=== PATIENT | female | born 1985 | race Caucasian/White ===

== ENCOUNTER 2016-12-13 16:23 | Emergency (ER) | payer BC, OTHER ==
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
== END 2016-12-13 17:27 | disposition home or self-care (01) ==
LOC: BURERS 16:23
DX: R07.89 Other chest pain (principal); M06.9 Rheumatoid arthritis, unspecified; J45.909 Unspecified asthma, uncomplicated; F41.9 Anxiety disorder, unspecified; F32.9 Major depressive disorder, single episode, unspecified; F17.210 Nicotine dependence, cigarettes, uncomplicated
CPT/HCPCS: 71020

== ENCOUNTER 2018-01-03 14:33 | Emergency (ER) | payer OTHER ==
[2018-01-03 14:58] LABS: Pregnancy Test - Urine (BHCG) Negative (Negative); Pregu Control Background? CLEAR/WHITE (CLR/WHITE); Pregu Control Bar Appear? YES (CONTROL BAR); Specific Gravity 1.025 (1.002-1.036)
[2018-01-03 14:59] LABS: Clarity Turbid (Clear); Specific Gravity, Urine 1.025 (1.005-1.030)
[2018-01-03 15:00] LABS: Bilirubin Moderate (Negative); Blood, Urine Large (Negative); Glucose, Urine (Dipstick) 250 mg/dL (Negative); Leukocyte Large (Negative); Nitrite Positive (Negative); Protein, Urine (Dipstick) > or equal to 300 mg/dL (Neg-Trace); Urobilinogen > or = 8.0 mg/dL (0.2-1.0)
[2018-01-03 15:04] LABS: Bacteria/HPF 4+ HPF (None Seen); RBC/HPF GREATER THAN 50-TNTC HPF (0-3); Squamous Epithelial 0-3 HPF (0-3)
[2018-01-03] MEDS ORDERED: Cephalexin 500 MG CAP ONE (15:06)
== END 2018-01-03 15:13 | disposition home or self-care (01) ==
LOC: BURERS 14:33
DX: N39.0 Urinary tract infection, site not specified (principal); J45.909 Unspecified asthma, uncomplicated; F41.9 Anxiety disorder, unspecified; F32.9 Major depressive disorder, single episode, unspecified; Z87.891 Personal history of nicotine dependence; Z79.899 Other long term (current) drug therapy
CPT/HCPCS: 81003; 81015; 81025; 87077; 87086; 99283

== ENCOUNTER 2018-06-14 21:02 | Emergency (ER) | payer OTHER ==
--- NOTE | 2018-06-14 21:38 | RAD ---
LEFT ANKLE THREE VIEWS: HISTORY: Post fall. Pain at the lateral aspect of the ankle. FINDINGS: There is some minimal anterior tibial spur formation. A tiny bony density is seen between the tip of the fibula and the lateral side of the talus, suggesting a tiny avulsive injury, which may be acute in nature. I do not see any soft tissue swelling or any definite joint effusion associated with this , and this could be the sequela of an old injury. 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 Calcaneal spurs are seen. IMPRESSION: Tiny bony density, which could indicate an avulsive type injury, related to the anterior talofibular ligament. I do not see any soft tissue swelling in this region, and this could be old. POS: [facility]
--- NOTE | 2018-06-14 21:42 | RAD ---
LEFT FOOT THREE VIEWS: HISTORY: Fall with foot injury. FINDINGS: There are no signs of fracture or dislocation. Spurring of the talonavicular joint and Achilles tend on insertion are noted. IMPRESSION: No acute injury. POS: [facility]
== END 2018-06-14 21:43 | disposition home or self-care (01) ==
LOC: BURERS 21:02
DX: S93.602A Unspecified sprain of left foot, initial encounter (principal); F41.9 Anxiety disorder, unspecified; F32.9 Major depressive disorder, single episode, unspecified; Z79.899 Other long term (current) drug therapy; X50.9XXA Other and unspecified overexertion or strenuous movements or postures, initial encounter

== ENCOUNTER 2018-11-16 17:56 | Emergency (ER) | payer BC, SELFPAY ==
[2018-11-16] MEDS ORDERED: AMOXicillin 250 MG CAP ONE (18:06)
[2018-11-16] MEDS ORDERED: Dexamethasone 4 MG TAB ONE (18:06)
== END 2018-11-16 18:10 | disposition home or self-care (01) ==
LOC: BURERS 17:56
DX: H66.91 Otitis media, unspecified, right ear (principal); J06.9 Acute upper respiratory infection, unspecified; J45.909 Unspecified asthma, uncomplicated; F41.9 Anxiety disorder, unspecified; F32.9 Major depressive disorder, single episode, unspecified; M12.30 Palindromic rheumatism, unspecified site; Z87.891 Personal history of nicotine dependence; Z79.899 Other long term (current) drug therapy
CPT/HCPCS: 99282; J8540

== ENCOUNTER 2019-09-28 12:03 | Emergency (ER) | payer OTHER ==
[2019-09-28] MEDS ORDERED: Ibuprofen 800 MG TAB ONE (13:14)
[2019-09-28] MEDS ORDERED: cefTRIAXone\\ROCEPHIN 1 GM VIAL ONE (13:43)
[2019-09-28] MEDS ORDERED: Lidocaine 2% PF 5 ML VIAL ONE (13:43)
--- NOTE | 2019-09-28 17:07 | RAD ---
CHEST TWO VIEWS: 09/28/19 No infiltrate or effusion was seen. The lungs are clear and the heart is normal in size. IMPRESSION: No acute finding. POS: [facility]
== END 2019-09-28 14:20 | disposition home or self-care (01) ==
LOC: BURERS 12:03
DX: J10.1 Influenza due to other identified influenza virus with other respiratory manifestations (principal); K04.7 Periapical abscess without sinus; J45.909 Unspecified asthma, uncomplicated; F41.9 Anxiety disorder, unspecified; F32.9 Major depressive disorder, single episode, unspecified; Z87.891 Personal history of nicotine dependence; Z79.899 Other long term (current) drug therapy
CPT/HCPCS: 71046; 87081; 87430; 87804; 96372; J0696; J2001

== ENCOUNTER 2020-05-24 07:51 | Emergency (ER) | payer OTHER, SELFPAY ==
[2020-05-24 22:59] LABS: SARS-CoV-2 MS2 Positive; SARS-CoV-2 N Gene Positive; SARS-CoV-2 S Gene Positive; SARS-CoV-2 by NAA DETECTED (NotDetected); SARS-CoV-2 orf1ab Positive
== END 2020-05-24 08:30 | disposition home or self-care (01) ==
LOC: BURERS 07:51
DX: U07.1 COVID-19 (principal); J06.9 Acute upper respiratory infection, unspecified; J45.909 Unspecified asthma, uncomplicated; F41.9 Anxiety disorder, unspecified; F32.9 Major depressive disorder, single episode, unspecified; Z79.899 Other long term (current) drug therapy
CPT/HCPCS: 87635; 87804; 99283; U0003

== ENCOUNTER 2020-11-20 15:58 | Outpatient (CLI) | payer BC | END 2020-11-20 15:59 | disposition home or self-care (01) | LOC: BURRAD 15:58 | PROVIDERS: ATTEND Physician Assistant | DX: S99.912A Unspecified injury of left ankle, initial encounter (principal) ==

== ENCOUNTER 2021-08-29 12:39 | Emergency (ER) | payer BC ==
[2021-08-29 13:38] LABS: #Basophils 0.1 thou/uL (0.0-0.2); #Eosinphils 0.3 thou/uL (0.0-0.7); #Lymphocytes 1.8 thou/uL (1.20-3.40); #Monocytes 0.6 thou/uL (0.11-0.59); #Neutrophils 9.5 thou/uL (1.40-6.50); %Basophils 0.7 % (0.0-1.0); %Eosinophils 2.1 % (0.0-10.0); %Lymphocytes 14.5 % (21.0-51.0); %Monocytes 5.3 % (0.0-10.0); %Neutrophils 77.5 % (42.0-75.0); Hemoglobin 13.6 g/dL (12.0-16.0); Mean Corpuscular HGB CONC 32.8 g/dL (32.0-36.0); Mean Corpuscular Hemoglobin 27.6 pg (27.0-31.0); Mean Corpuscular Volume 84.2 fL (78.0-98.0); Mean Platelet Volume 6.9 fL (7.4-10.4); Platelet Count 281 thou/uL (130-400); RBC Distribution Width 13.7 % (11.5-14.5); Red Blood Cell (RBC) Count 4.93 mill/uL (4.20-5.40); White Blood Cell (WBC) Count 12.2 thou/uL (4.8-10.8)
[2021-08-29] MEDS ORDERED: Glycopyrrolate 0.4 MG/ 2 ML VIAL ONE (13:47)
[2021-08-29] MEDS ORDERED: Ketorolac Tromethamine 30 MG/ML VIAL ONE (13:47)
[2021-08-29 13:51] LABS: Bilirubin Negative (Negative); Blood, Urine Negative (Negative); Clarity Slightly Cloudy (Clear); Glucose, Urine (Dipstick) Negative (Negative); Ketone, Urine Negative (Negative); Leukocyte Negative (Negative); Nitrite Negative (Negative); Protein, Urine (Dipstick) Trace mg/dL (Neg-Trace); Specific Gravity, Urine 1.025 (1.005-1.030); pH, Urine 7.5 (5.0-9.0)
[2021-08-29 13:53] LABS: ALT (SGPT) 12 U/L (8-55); AST (SGOT) 17 U/L (5-34); Albumin 4.1 g/dL (3.5-5.0); Alkaline Phosphatase 103 U/L (40-110); Anion Gap 14 mmol/L (10-20); BUN (Urea Nitrogen) 9 mg/dL (7.0-18.7); Bilirubin, Total 0.5 mg/dL (0.2-1.2); Calc. Creatinine Clearance 0 mL/min (70-130); Calcium 9.2 mg/dL (7.8-10.44); Carbon Dioxide 30 mmol/L (22-29); Chloride 99 mmol/L (98-107); Globulin 3.5 g/dL (2.4-3.5); Glucose 101 mg/dL (70-105); Lipase 14 U/L (8-78); Potassium 3.7 mmol/L (3.5-5.1); Protein, Total 7.6 g/dL (6.0-8.3); Sodium 139 mmol/L (136-145)
== END 2021-08-29 14:31 | disposition home or self-care (01) ==
LOC: BURERS 12:39
DX: K80.50 Calculus of bile duct without cholangitis or cholecystitis without obstruction (principal); J45.909 Unspecified asthma, uncomplicated
CPT/HCPCS: 36415; 80053; 81003; 83690; 85025; 96374; 96375; J1885

== ENCOUNTER 2021-12-04 08:44 | Emergency (ER) | payer BC ==
[2021-12-04] MEDS ORDERED: Ibuprofen 800 MG TAB ONE (08:56)
== END 2021-12-04 09:55 | disposition home or self-care (01) ==
LOC: BURERS 08:44
DX: S93.431A Sprain of tibiofibular ligament of right ankle, initial encounter (principal); X50.1XXA Overexertion from prolonged static or awkward postures, initial encounter

== ENCOUNTER 2021-12-12 16:26 | Outpatient (CLI) | payer BC | END 2021-12-12 16:27 | disposition home or self-care (01) | LOC: BURRAD 16:26 | PROVIDERS: ATTEND Physician Assistant | DX: M25.571 Pain in right ankle and joints of right foot (principal); M79.89 Other specified soft tissue disorders ==

== ENCOUNTER 2022-07-20 12:39 | Emergency (ER) | payer BC | END 2022-07-20 14:24 | disposition home or self-care (01) | LOC: BURERS 12:39 | DX: J11.1 Influenza due to unidentified influenza virus with other respiratory manifestations (principal); I10 Essential (primary) hypertension | CPT/HCPCS: 71045; 87081; 87430; 87804 ==

== ENCOUNTER 2022-09-07 10:28 | Emergency (ER) | payer BC ==
[2022-09-07] MEDS ORDERED: Ipratropium/Albuterol 3 ML NEB ONE (10:46)
[2022-09-07] MEDS ORDERED: Ibuprofen 200 MG TAB ONE (10:46)
== END 2022-09-07 11:35 | disposition home or self-care (01) ==
LOC: BURERS 10:28
DX: B34.9 Viral infection, unspecified (principal); J45.909 Unspecified asthma, uncomplicated; I10 Essential (primary) hypertension; Z20.822 Contact with and (suspected) exposure to COVID-19
CPT/HCPCS: 87804; 99284; J7620; U0003; U0005

== ENCOUNTER 2024-03-07 16:42 | Outpatient (CLI) | payer OTHER | END 2024-03-07 16:43 | disposition home or self-care (01) | LOC: BURRAD 16:42 | PROVIDERS: ATTEND Physician Assistant | DX: S09.92XA Unspecified injury of nose, initial encounter (principal) | CPT/HCPCS: 70160 ==

== ENCOUNTER 2024-04-30 14:51 | Emergency (ER) | payer OTHER ==
[2024-04-30] MEDS ORDERED: diphenhydrAMINE 25 MG CAP ONE (15:01)
[2024-04-30] MEDS ORDERED: Dexamethasone 4 MG TAB ONE (15:01)
== END 2024-04-30 16:22 | disposition home or self-care (01) ==
LOC: BURERS 14:51
DX: T78.1XXA Other adverse food reactions, not elsewhere classified, initial encounter (principal); I10 Essential (primary) hypertension
CPT/HCPCS: 99283; J8540